=== PATIENT | male | born 1960 | race Caucasian/White ===

== ENCOUNTER 2017-03-26 16:04 | Emergency (ER) | payer BC, OTHER ==
[~2017-03-26] VITALS: Ht 177.8 cm; Wt 88.9 kg
[2017-03-26] MEDS ORDERED: doxycycline PO (16:22)
[2017-03-26] MEDS ORDERED: NORCOTAB PO (18:40)
[2017-03-26] MEDS ORDERED: ZOFR4TAB3 PO (18:40)
[2017-03-26 18:42] VITALS: BP 139/86
[2017-03-26] MEDS ORDERED: ONDANSETRON 4 MG ORAL DISINTEGRATING TAB (S0181) PO ONE (18:45)
[2017-03-26] MEDS ORDERED: NORCO 5/325MG TABLET (BULK FOR ED) PO ONE (18:45)
== END 2017-03-26 18:49 | disposition home or self-care (01) ==
LOC: M ED 16:04
DX: R31.9 Hematuria, unspecified (principal); R10.9 Unspecified abdominal pain; A69.20 Lyme disease, unspecified; Z87.442 Personal history of urinary calculi; Z91.013 Allergy to seafood